=== PATIENT | female | born 1990 | race Caucasian/White ===

== ENCOUNTER 2024-12-17 16:21 | Emergency (ER) | payer MEDICARE, BC ==
[~2024-12-17] VITALS: Ht 152.4 cm; Wt 52.2 kg
[2024-12-17] MEDS ORDERED: CEPH500C2 PO (17:22)
[2024-12-17] MEDS ORDERED: SULF1TAB48 PO (17:22)
[2024-12-17 17:32] VITALS: BP 155/120; TEMP 98.2; O2SAT 99
== END 2024-12-17 17:33 | disposition home or self-care (01) ==
LOC: ER 17:01
DX: L03.211 Cellulitis of face (principal); I10 Essential (primary) hypertension; Z88.1 Allergy status to other antibiotic agents